=== PATIENT | female | born 1985 | race Caucasian/White ===

== ENCOUNTER 2018-03-14 19:56 | Emergency (ER) | payer OTHER ==
[~2018-03-14] VITALS: Ht 149.9 cm; Wt 65.8 kg
[~2018-03-14 19:56] MED LIST: PRENATAL1 TAB PO
[2018-03-15] MEDS ORDERED: KETO10TA2 PO (07:41)
== END 2018-03-15 08:41 | disposition home or self-care (01) ==
LOC: ER 19:56
DX: N83.292 Other ovarian cyst, left side (principal); R10.2 Pelvic and perineal pain